=== PATIENT | male | born 1995 | race African-American/Black ===

== ENCOUNTER 2016-09-07 13:01 | Observation (INO) | payer MEDICAID ==
[~2016-09-07] VITALS: Ht 180.3 cm; Wt 98.3 kg
[2016-09-07] MEDS ORDERED: RISP2TAB3 PO (13:41)
[2016-09-07] MEDS ORDERED: ZIPRASIDONE 20 MG INJ IM ONE ×2 (14:00→18:13)
[2016-09-07] MEDS ORDERED: KETOROLAC 60 MG/2 ML IM ONE (14:00)
[2016-09-07 14:08] LABS: ASPARTATE AMINO TRANSFERASE 26 U/L (15-37); BLOOD UREA NITROGEN 13 mg/dL (7-18)
[2016-09-07 14:17] LABS: ACETAMINOPHEN < 2 mcg/mL (10-30)
[2016-09-07 15:22] LABS: DAU SCREEN DISCLAIMER
[2016-09-07] MEDS ORDERED: KETOROLAC 30 MG/1 ML ONE (18:13)
[2016-09-07] MEDS ORDERED: POLYETHYLENE GLYCOL 17 GM PACKET PO PRN (18:30)
[2016-09-07] MEDS ORDERED: ONDANSETRON ODT 4 MG PO PRN (18:30)
[2016-09-07] MEDS ORDERED: BISACODYL 10 MG SUPP PR PRN (18:30)
[2016-09-07] MEDS ORDERED: ACETAMINOPHEN 325 MG TABLET PO PRN (18:30)
[2016-09-07 19:18] VITALS: BP 162/107
[2016-09-07] MEDS: RISPERIDONE 2 MG TABLET PO SCH (20:44)
[2016-09-08 07:55] VITALS: BP 158/81
[2016-09-08] MEDS ORDERED: SENNA/DOCUSATE TABLET PO SCH (09:00)
[2016-09-08] MEDS: NICOTINE GUM 2 MG BC PRN ×3 (16:07→21:33)
[2016-09-08 19:16] VITALS: BP 164/96
[2016-09-08] MEDS: RISPERIDONE 2 MG TABLET PO SCH (20:29)
[2016-09-08] MEDS: LORazepam 1MG TABLET PO PRN (20:39)
[2016-09-08 21:41] VITALS: BP 157/92
[2016-09-09 07:54] VITALS: BP 168/100
[2016-09-09] MEDS: NICOTINE GUM 2 MG BC PRN ×5 (08:05→19:33)
[2016-09-09] MEDS ORDERED: SENNA/DOCUSATE TABLET PO SCH (09:00)
[2016-09-09 20:05] VITALS: BP 158/102
[2016-09-09] MEDS: RISPERIDONE 2 MG TABLET PO SCH (20:34)
[2016-09-09] MEDS: LORazepam 1MG TABLET PO PRN (20:34)
[2016-09-10 00:15] VITALS: BP 157/87
== END 2016-09-10 00:45 ==
LOC: ED 14:04 → EDIP 17:33 → 3E 19:14
PROVIDERS: ADMIT Hospitalist
DX: F20.0 Paranoid schizophrenia (principal); R45.851 Suicidal ideations; R00.0 Tachycardia, unspecified; D64.9 Anemia, unspecified; I10 Essential (primary) hypertension
CPT/HCPCS: 36415; 80053; 80307; 80329; 81003; 82728; 83540; 83550; 85025; 93005; G0378; G0480

== ENCOUNTER 2016-09-14 16:46 | Emergency (ER) | payer MEDICAID ==
[~2016-09-14] VITALS: Ht 180.3 cm; Wt 99.0 kg
[~2016-09-14 16:46] MED LIST: RISP2TAB3 PO
[2016-09-14 16:51] VITALS: BP 161/122
[2016-09-15] MEDS ORDERED: ARIP15TA2 PO (07:17)
== END 2016-09-14 17:48 | disposition left against medical advice (07) ==
LOC: ED 17:42
DX: I10 Essential (primary) hypertension (principal)

== ENCOUNTER 2016-09-15 06:56 | Emergency (ER) | payer MEDICAID ==
[~2016-09-15] VITALS: Ht 180.3 cm; Wt 99.4 kg
[2016-09-15] MEDS ORDERED: ARIP15TA2 PO (07:17)
[2016-09-15] MEDS ORDERED: MAGNESIUM CITRATE 300ML ORAL SOL PO ONE (07:30)
[2016-09-15] MEDS ORDERED: MAGNESIUM CITRATE 300ML ORAL SOL ONE (07:32)
[2016-09-15 08:25] VITALS: BP 172/102
== END 2016-09-15 08:29 | disposition home or self-care (01) ==
LOC: ED 07:27
DX: I10 Essential (primary) hypertension (principal); F20.0 Paranoid schizophrenia; F29 Unspecified psychosis not due to a substance or known physiological condition; Z91.14 Patient's other noncompliance with medication regimen
CPT/HCPCS: 99283

== ENCOUNTER 2016-09-15 09:25 | Emergency (ER) | payer MEDICAID ==
[~2016-09-15] VITALS: Ht 180.3 cm; Wt 99.3 kg
[~2016-09-15 09:25] MED LIST changes: +ARIP15TA2 PO
[2016-09-15 10:44] LABS: BLOOD UREA NITROGEN 13 mg/dL (7-18)
[2016-09-15 10:46] LABS: ACETAMINOPHEN < 2 mcg/mL (10-30)
[2016-09-15 10:48] LABS: DAU SCREEN DISCLAIMER
[2016-09-15 11:04] VITALS: BP 153/95
== END 2016-09-15 13:09 | disposition home or self-care (01) ==
LOC: ED 10:34
DX: F25.9 Schizoaffective disorder, unspecified (principal); F22 Delusional disorders; I10 Essential (primary) hypertension; F20.0 Paranoid schizophrenia; F17.210 Nicotine dependence, cigarettes, uncomplicated
CPT/HCPCS: 36415; 80048; 80307; 80329; 82040; 85025; 93005; G0480

== ENCOUNTER 2016-09-25 14:08 | Observation (INO) | payer MEDICAID ==
[~2016-09-25] VITALS: Ht 180.3 cm; Wt 101.0 kg
[2016-09-25 15:06] LABS: BLOOD UREA NITROGEN 14 mg/dL (7-18)
[2016-09-25 15:10] LABS: ACETAMINOPHEN < 2 mcg/mL (10-30)
[2016-09-25 15:26] LABS: DAU SCREEN DISCLAIMER
[2016-09-25] MEDS ORDERED: HALOPERIDOL 5 MG TABLET PO PRN (19:00)
[2016-09-25] MEDS ORDERED: ACETAMINOPHEN 325 MG TABLET PO PRN (19:00)
[2016-09-25] MEDS ORDERED: ZIPRASIDONE 20 MG INJ IM PRN (19:00)
[2016-09-25] MEDS ORDERED: LORazepam 1MG TABLET ONE (19:51)
[2016-09-25] MEDS: LORazepam 1MG TABLET PO PRN ×2 (19:54→21:58)
[2016-09-25 21:50] VITALS: BP 169/105
[2016-09-26 01:25] VITALS: BP 143/83
[2016-09-26 07:40] VITALS: BP 157/93
[2016-09-26] MEDS ORDERED: ARIPIPRAZOLE 15 MG TABLET PO SCH (09:00)
[2016-09-26] MEDS: LORazepam 1MG TABLET PO PRN ×2 (19:17→23:28)
[2016-09-26 19:34] VITALS: BP 182/115
[2016-09-26 20:40] VITALS: BP 172/114
[2016-09-26] MEDS: NICOTINE GUM 2 MG BC PRN (20:44)
[2016-09-26 23:25] VITALS: BP 186/103
[2016-09-27 00:38] VITALS: BP 156/89
[2016-09-27 07:41] VITALS: BP_SYST 165; BP_SYST 175; BP_DIAS 115; BP_DIAS 119
[2016-09-27] MEDS: LORazepam 1MG TABLET PO PRN (07:52)
[2016-09-27] MEDS: NICOTINE GUM 2 MG BC PRN ×2 (07:58→21:30)
[2016-09-27 09:15] VITALS: BP 142/81
[2016-09-27 19:45] VITALS: BP 155/89
[2016-09-28 08:00] VITALS: BP 200/128
[2016-09-28 08:02] VITALS: BP 180/123
[2016-09-28] MEDS: LORazepam 1MG TABLET PO PRN ×2 (14:14→16:49)
[2016-09-28 14:18] VITALS: BP_SYST 170; BP_SYST 171; BP_DIAS 118; BP_DIAS 126
[2016-09-28] MEDS: NICOTINE GUM 2 MG BC PRN ×3 (14:30→20:17)
[2016-09-28 16:52] VITALS: BP 188/130
[2016-09-28] MEDS ORDERED: AMLODIPINE 5 MG TABLET PO ONE (17:30)
[2016-09-28 19:04] VITALS: BP 166/127
[2016-09-28] MEDS: ALPRazolam 1MG TABLET PO PRN (20:16)
[2016-09-29] MEDS: NICOTINE GUM 2 MG BC PRN (07:19)
[2016-09-29] MEDS: ALPRazolam 1MG TABLET PO PRN (07:19)
[2016-09-29 08:00] VITALS: BP 164/130
[2016-09-29] MEDS ORDERED: AMLODIPINE 5 MG TABLET PO SCH ×2 (09:00)
== END 2016-09-29 08:48 ==
LOC: ED 18:21 → EDIP 18:43 → 3E 21:42
PROVIDERS: ADMIT Hospitalist; ATTEND Hospitalist
DX: F20.0 Paranoid schizophrenia (principal); R45.851 Suicidal ideations; R45.850 Homicidal ideations; F32.9 Major depressive disorder, single episode, unspecified; I10 Essential (primary) hypertension; F10.10 Alcohol abuse, uncomplicated
CPT/HCPCS: 36415; 80048; 80307; 80329; 82040; 85025; 99285; G0378; G0480

== ENCOUNTER 2016-10-13 19:58 | Observation (INO) | payer MEDICAID ==
[~2016-10-13] VITALS: Ht 180.3 cm; Wt 104.3 kg
[2016-10-13 20:36] LABS: DAU SCREEN DISCLAIMER
[2016-10-13 20:51] LABS: BLOOD UREA NITROGEN 15 mg/dL (7-18)
[2016-10-13 20:52] LABS: ACETAMINOPHEN < 2 mcg/mL (10-30)
[2016-10-13 21:44] LABS: DIFF TOTAL CELLS COUNTED 100 CELL DIFF
[2016-10-13 21:51] LABS: VERIFY COUNTS? YES
[2016-10-13 21:52] LABS: POLYCHROMASIA 1+
[2016-10-13 21:53] LABS: LARGE PLATELETS 1+
[2016-10-13] MEDS ORDERED: QUETIAPINE 100MG TABLET PO ONE (23:30)
[2016-10-14] MEDS ORDERED: BISACODYL 10 MG SUPP PR PRN (01:00)
[2016-10-14] MEDS ORDERED: POLYETHYLENE GLYCOL 17 GM PACKET PO PRN (01:00)
[2016-10-14] MEDS ORDERED: ONDANSETRON ODT 4 MG PO PRN (01:00)
[2016-10-14] MEDS ORDERED: ACETAMINOPHEN 325 MG TABLET PO PRN (01:00)
[2016-10-14] MEDS ORDERED: POTASSIUM CHLORIDE 20 MEQ TAB.ER.PRT PO ONE (01:00)
[2016-10-14] MEDS ORDERED: ENALAPRILAT 1.25 MG/ML, 2ML IV ONE (01:00)
[2016-10-14 01:16] VITALS: BP 177/121
[2016-10-14 07:36] VITALS: BP 154/94
[2016-10-14] MEDS: ARIPIPRAZOLE 15 MG TABLET PO SCH (08:10)
[2016-10-14] MEDS: HYDROCHLOROTHIAZIDE 25 MG TABLET PO SCH (08:11)
[2016-10-14] MEDS: SENNA/DOCUSATE TABLET PO SCH (09:00)
[2016-10-14] MEDS: NICOTINE 7 MG/24 HR PATCH.TD24 TD SCH (09:00)
[2016-10-14] MEDS: QUETIAPINE 200 MG TABLET PO SCH ×2 (09:00→21:00)
[2016-10-14] MEDS: METOPROLOL TARTRATE 25 MG TABLET PO SCH ×2 (09:30→17:54)
[2016-10-14 19:26] VITALS: BP 139/78
[2016-10-15 08:22] VITALS: BP 155/94
[2016-10-15] MEDS: METOPROLOL TARTRATE 25 MG TABLET PO SCH ×2 (08:42→18:24)
[2016-10-15] MEDS: ARIPIPRAZOLE 15 MG TABLET PO SCH (08:43)
[2016-10-15] MEDS: HYDROCHLOROTHIAZIDE 25 MG TABLET PO SCH (08:43)
[2016-10-15] MEDS: SENNA/DOCUSATE TABLET PO SCH ×2 (08:43→09:00)
[2016-10-15] MEDS: QUETIAPINE 200 MG TABLET PO SCH ×2 (08:44→21:00)
[2016-10-15] MEDS: NICOTINE 7 MG/24 HR PATCH.TD24 TD SCH (09:00)
[2016-10-15] MEDS: NICOTINE GUM 2 MG BC PRN (09:39)
[2016-10-15 09:52] LABS: BLOOD UREA NITROGEN 16 mg/dL (7-18)
[2016-10-15 19:19] VITALS: BP 139/84
[2016-10-16] MEDS: METOPROLOL TARTRATE 25 MG TABLET PO SCH ×2 (07:05→17:14)
[2016-10-16 07:06] VITALS: BP 157/77
[2016-10-16] MEDS: NICOTINE 7 MG/24 HR PATCH.TD24 TD SCH (09:00)
[2016-10-16] MEDS: QUETIAPINE 200 MG TABLET PO SCH ×2 (09:04→20:09)
[2016-10-16] MEDS: ARIPIPRAZOLE 15 MG TABLET PO SCH (09:05)
[2016-10-16] MEDS: HYDROCHLOROTHIAZIDE 25 MG TABLET PO SCH (09:05)
[2016-10-16] MEDS: SENNA/DOCUSATE TABLET PO SCH (09:06)
[2016-10-16] MEDS: NICOTINE GUM 2 MG BC PRN (09:09)
[2016-10-16 19:20] VITALS: BP 152/83
[2016-10-17] MEDS: METOPROLOL TARTRATE 25 MG TABLET PO SCH ×2 (07:33→18:04)
[2016-10-17] MEDS: HYDROCHLOROTHIAZIDE 25 MG TABLET PO SCH (07:33)
[2016-10-17] MEDS: NICOTINE 7 MG/24 HR PATCH.TD24 TD SCH (07:44)
[2016-10-17] MEDS: SENNA/DOCUSATE TABLET PO SCH (07:44)
[2016-10-17] MEDS: ARIPIPRAZOLE 15 MG TABLET PO SCH (07:44)
[2016-10-17] MEDS: QUETIAPINE 200 MG TABLET PO SCH (07:44)
[2016-10-17 07:48] VITALS: BP 175/115
[2016-10-17] MEDS: NICOTINE GUM 2 MG BC PRN ×2 (07:50→18:10)
[2016-10-17 08:35] VITALS: BP 150/78
[2016-10-17 10:42] VITALS: BP 150/87
[2016-10-17 19:10] VITALS: BP 151/88
[2016-10-17] MEDS: QUETIAPINE 100MG TABLET PO SCH (20:07)
[2016-10-18] MEDS: METOPROLOL TARTRATE 25 MG TABLET PO SCH ×2 (06:31→18:19)
[2016-10-18 06:32] VITALS: BP 169/94
[2016-10-18] MEDS: ARIPIPRAZOLE 15 MG TABLET PO SCH (07:45)
[2016-10-18] MEDS: SENNA/DOCUSATE TABLET PO SCH (07:46)
[2016-10-18] MEDS: HYDROCHLOROTHIAZIDE 25 MG TABLET PO SCH (07:46)
[2016-10-18] MEDS: QUETIAPINE 100MG TABLET PO SCH ×2 (07:46→20:13)
[2016-10-18] MEDS: NICOTINE GUM 2 MG BC PRN ×2 (07:49→18:22)
[2016-10-18 08:00] VITALS: BP 139/91
[2016-10-18] MEDS: NICOTINE 7 MG/24 HR PATCH.TD24 TD SCH (08:54)
[2016-10-18 19:38] VITALS: BP 148/95
[2016-10-19] MEDS: METOPROLOL TARTRATE 25 MG TABLET PO SCH ×2 (06:35→17:29)
[2016-10-19 07:24] VITALS: BP 154/101
[2016-10-19] MEDS: SENNA/DOCUSATE TABLET PO SCH (08:01)
[2016-10-19] MEDS: ARIPIPRAZOLE 15 MG TABLET PO SCH (08:01)
[2016-10-19] MEDS: HYDROCHLOROTHIAZIDE 25 MG TABLET PO SCH (08:01)
[2016-10-19] MEDS: NICOTINE 7 MG/24 HR PATCH.TD24 TD SCH (08:02)
[2016-10-19] MEDS: QUETIAPINE 100MG TABLET PO SCH ×2 (08:02→20:51)
[2016-10-19] MEDS: NICOTINE GUM 2 MG BC PRN ×2 (08:03→17:33)
[2016-10-19 11:00] VITALS: BP 141/89
[2016-10-19 17:27] VITALS: BP 150/100
[2016-10-19 20:24] VITALS: BP 145/102
[2016-10-20 06:28] VITALS: BP 134/83
[2016-10-20] MEDS: METOPROLOL TARTRATE 25 MG TABLET PO SCH (06:38)
[2016-10-20 07:42] VITALS: BP 118/72
[2016-10-20] MEDS: HYDROCHLOROTHIAZIDE 25 MG TABLET PO SCH (08:18)
[2016-10-20] MEDS: NICOTINE GUM 2 MG BC PRN (08:19)
[2016-10-20] MEDS: SENNA/DOCUSATE TABLET PO SCH (08:19)
[2016-10-20] MEDS: QUETIAPINE 100MG TABLET PO SCH (08:19)
[2016-10-20] MEDS: NICOTINE 7 MG/24 HR PATCH.TD24 TD SCH (08:22)
[2016-10-20] MEDS ORDERED: AMLO2.5T PO (14:34)
[2016-10-20] MEDS ORDERED: QUET400T4 PO (14:34)
[2016-10-20] MEDS ORDERED: METO25TA35 PO (14:34)
[2016-10-20] MEDS ORDERED: METOPROLOL TARTRATE 25 MG TABLET PO SCH (18:00)
[2016-10-21] MEDS ORDERED: SENNA/DOCUSATE TABLET PO SCH (09:00)
== END 2016-10-20 16:35 | disposition home or self-care (01) ==
LOC: ED 21:20 → EDIP 23:18 → 3E 10-14 01:21
PROVIDERS: ADMIT Internal Medicine; ATTEND Internal Medicine
DX: R45.851 Suicidal ideations (principal); I10 Essential (primary) hypertension; F25.9 Schizoaffective disorder, unspecified; F20.0 Paranoid schizophrenia; F10.129 Alcohol abuse with intoxication, unspecified; E87.6 Hypokalemia; F15.20 Other stimulant dependence, uncomplicated; F17.200 Nicotine dependence, unspecified, uncomplicated
CPT/HCPCS: 36415; 80048; 80307; 80329; 82040; 85025; 99285; G0378; G0480

== ENCOUNTER 2016-10-21 18:35 | Emergency (ER) | payer MEDICAID ==
[~2016-10-21] VITALS: Ht 180.3 cm; Wt 108.1 kg
[~2016-10-21 18:35] MED LIST changes: +AMLO2.5T PO; +METO25TA35 PO; +QUET400T4 PO
[2016-10-21] MEDS ORDERED: LORazepam 1MG TABLET PO ONE (19:30)
[2016-10-21 19:47] LABS: BLOOD UREA NITROGEN 14 mg/dL (7-18)
[2016-10-21 19:50] LABS: ASPARTATE AMINO TRANSFERASE 37 U/L (15-37)
[2016-10-21 19:55] LABS: ACETAMINOPHEN < 2 mcg/mL (10-30)
[2016-10-21 20:55] LABS: DAU SCREEN DISCLAIMER
[2016-10-22 02:24] VITALS: BP 165/101
== END 2016-10-22 02:26 | disposition home or self-care (01) ==
LOC: ED 23:59
DX: F32.9 Major depressive disorder, single episode, unspecified (principal); F10.10 Alcohol abuse, uncomplicated; F15.10 Other stimulant abuse, uncomplicated; I10 Essential (primary) hypertension; F17.200 Nicotine dependence, unspecified, uncomplicated
CPT/HCPCS: 36415; 80053; 80307; 80329; 81003; 85025; 99284; G0480

== ENCOUNTER 2016-11-16 14:30 | Emergency (ER) | payer MEDICAID ==
[~2016-11-16] VITALS: Ht 180.3 cm; Wt 107.3 kg
[2016-11-16 14:42] VITALS: BP 127/80
[2016-11-16] MEDS ORDERED: LISI2.5T PO (18:25)
== END 2016-11-16 15:41 | disposition home or self-care (01) ==
LOC: ED 15:25
DX: F20.0 Paranoid schizophrenia (principal); I10 Essential (primary) hypertension
CPT/HCPCS: 99284

== ENCOUNTER 2016-11-16 16:42 | Emergency (ER) | payer MEDICAID ==
[~2016-11-16] VITALS: Ht 180.3 cm; Wt 106.1 kg
[2016-11-16 17:08] VITALS: BP 130/75
[2016-11-16] MEDS ORDERED: LISI2.5T PO (18:25)
== END 2016-11-16 18:27 | disposition home or self-care (01) ==
LOC: ED 18:21
DX: Z76.5 Malingerer [conscious simulation] (principal); F43.0 Acute stress reaction; Z72.89 Other problems related to lifestyle; I10 Essential (primary) hypertension; F25.9 Schizoaffective disorder, unspecified
CPT/HCPCS: 99284

== ENCOUNTER 2016-11-17 11:54 | Emergency (ER) | payer MEDICAID ==
[~2016-11-17 11:54] MED LIST changes: +LISI2.5T PO
== END 2016-11-17 13:01 | disposition left against medical advice (07) ==
LOC: ED 12:57
DX: Z53.21 Procedure and treatment not carried out due to patient leaving prior to being seen by health care provider (principal)

== ENCOUNTER 2016-11-17 16:08 | Inpatient (IN) | payer MEDICAID ==
[~2016-11-17] VITALS: Ht 180.3 cm; Wt 107.8 kg
[2016-11-17] MEDS ORDERED: PLEASE ENTER HEIGHT AND WEIGHT MC SCH (17:00)
[2016-11-17] MEDS ORDERED: SODIUM CHLORIDE FLUSH 10ML SYR IVF ONE (17:00)
[2016-11-17 17:02] LABS: ASPARTATE AMINO TRANSFERASE 34 U/L (15-37); BLOOD UREA NITROGEN 17 mg/dL (7-18)
[2016-11-17 17:03] LABS: ACETAMINOPHEN < 2 mcg/mL (10-30)
[2016-11-17] MEDS ORDERED: LORazepam 1MG TABLET PO ONE (17:30)
[2016-11-17] MEDS: SODIUM CHLORIDE 0.9% 1,000ML IVBOLUS ONE ×2 (18:59→20:10)
[2016-11-17] MEDS ORDERED: POLYETHYLENE GLYCOL 17 GM PACKET PO PRN (20:00)
[2016-11-17] MEDS ORDERED: ONDANSETRON 2MG/ML, 2ML IVPush PRN (20:00)
[2016-11-17] MEDS ORDERED: BISACODYL 10 MG SUPP PR PRN (20:00)
[2016-11-17] MEDS ORDERED: ACETAMINOPHEN 325 MG TABLET PO PRN (20:00)
[2016-11-17 20:33] LABS: DAU SCREEN DISCLAIMER
[2016-11-17] MEDS: SODIUM CHLORIDE FLUSH 10ML SYR IVF SCH (23:27)
[2016-11-17 23:30] VITALS: BP 143/86
[2016-11-17] MEDS: HEPARIN 5,000 UNITS/ML, 1ML SQ SCH (23:32)
[2016-11-18] MEDS: METOPROLOL TARTRATE 25 MG TABLET PO SCH ×3 (00:23→17:34)
[2016-11-18 04:00] VITALS: BP 110/67
[2016-11-18 05:39] LABS: BLOOD UREA NITROGEN 18 mg/dL (7-18)
[2016-11-18 05:42] LABS: ASPARTATE AMINO TRANSFERASE 37 U/L (15-37)
[2016-11-18 07:47] VITALS: BP 106/67
[2016-11-18] MEDS: HEPARIN 5,000 UNITS/ML, 1ML SQ SCH ×2 (09:31→16:00)
[2016-11-18] MEDS: SENNA/DOCUSATE TABLET PO SCH (09:32)
[2016-11-18] MEDS: LISINOPRIL 5 MG TABLET PO SCH (09:32)
[2016-11-18] MEDS: AMLODIPINE 2.5 MG TABLET PO SCH (09:32)
[2016-11-18] MEDS: SODIUM CHLORIDE FLUSH 10ML SYR IVF SCH ×2 (09:32→21:28)
[2016-11-18 09:38] VITALS: BP 121/71
[2016-11-18 13:00] VITALS: BP 147/77
[2016-11-18 18:55] VITALS: BP 136/81
[2016-11-19] MEDS: HEPARIN 5,000 UNITS/ML, 1ML SQ SCH ×3 (00:31→15:36)
[2016-11-19 01:50] VITALS: BP 112/61
[2016-11-19] MEDS: METOPROLOL TARTRATE 25 MG TABLET PO SCH ×2 (05:15→17:26)
[2016-11-19 06:41] VITALS: BP 133/84
[2016-11-19] MEDS: SENNA/DOCUSATE TABLET PO SCH (09:45)
[2016-11-19] MEDS: LISINOPRIL 5 MG TABLET PO SCH (09:45)
[2016-11-19] MEDS: SODIUM CHLORIDE FLUSH 10ML SYR IVF SCH (09:46)
[2016-11-19] MEDS: AMLODIPINE 2.5 MG TABLET PO SCH (09:46)
[2016-11-19 12:26] VITALS: BP_SYST 135; BP_SYST 156; BP_DIAS 78; BP_DIAS 92
[2016-11-19] MEDS: NICOTINE 14MG/24 HR PATCH.TD24 TD SCH (15:37)
[2016-11-19 18:25] VITALS: BP 151/89
[2016-11-20 00:37] VITALS: BP 136/77
[2016-11-20 06:21] VITALS: BP 143/88
[2016-11-20] MEDS: METOPROLOL TARTRATE 25 MG TABLET PO SCH ×2 (06:22→17:15)
[2016-11-20 06:45] VITALS: BP 134/89
[2016-11-20] MEDS: AMLODIPINE 2.5 MG TABLET PO SCH (07:47)
[2016-11-20] MEDS: SENNA/DOCUSATE TABLET PO SCH (07:47)
[2016-11-20] MEDS: LISINOPRIL 5 MG TABLET PO SCH (07:48)
[2016-11-20 11:07] VITALS: BP 138/70
[2016-11-20] MEDS: NICOTINE 14MG/24 HR PATCH.TD24 TD SCH (15:34)
[2016-11-20 19:46] VITALS: BP 152/103
[2016-11-21 05:56] VITALS: BP 147/93
[2016-11-21] MEDS: METOPROLOL TARTRATE 25 MG TABLET PO SCH ×2 (05:58→17:14)
[2016-11-21 07:11] VITALS: BP 141/89
[2016-11-21] MEDS: SENNA/DOCUSATE TABLET PO SCH (08:51)
[2016-11-21] MEDS: AMLODIPINE 2.5 MG TABLET PO SCH (08:51)
[2016-11-21] MEDS: LISINOPRIL 5 MG TABLET PO SCH (08:51)
[2016-11-21] MEDS: NICOTINE 14MG/24 HR PATCH.TD24 TD SCH (15:44)
[2016-11-21 20:15] VITALS: BP 142/84
[2016-11-22 05:48] VITALS: BP 156/93
[2016-11-22] MEDS: METOPROLOL TARTRATE 25 MG TABLET PO SCH ×2 (05:52→19:59)
[2016-11-22 07:28] VITALS: BP 145/101
[2016-11-22] MEDS: LISINOPRIL 5 MG TABLET PO SCH (10:04)
[2016-11-22] MEDS: SENNA/DOCUSATE TABLET PO SCH (10:04)
[2016-11-22] MEDS: AMLODIPINE 2.5 MG TABLET PO SCH (10:04)
[2016-11-22] MEDS ORDERED: NICOTINE GUM 2 MG BC PRN (16:00)
[2016-11-22] MEDS: NICOTINE GUM 2 MG BC PRN ×2 (16:57→21:35)
[2016-11-22 20:47] VITALS: BP 165/106
[2016-11-23 05:59] VITALS: BP 128/79
[2016-11-23 06:00] VITALS: BP 128/79
[2016-11-23] MEDS: METOPROLOL TARTRATE 25 MG TABLET PO SCH ×2 (06:01→18:00)
[2016-11-23 07:41] VITALS: BP 160/94
[2016-11-23] MEDS: AMLODIPINE 2.5 MG TABLET PO SCH (10:36)
[2016-11-23] MEDS: LISINOPRIL 5 MG TABLET PO SCH (10:36)
[2016-11-23] MEDS: SENNA/DOCUSATE TABLET PO SCH (10:38)
[2016-11-23] MEDS: NICOTINE GUM 2 MG BC PRN ×2 (11:39→20:02)
[2016-11-23 19:47] VITALS: BP 161/90
[2016-11-23 20:56] VITALS: BP 150/80
[2016-11-24 05:34] VITALS: BP 119/78
[2016-11-24] MEDS: METOPROLOL TARTRATE 25 MG TABLET PO SCH ×2 (05:36→18:00)
[2016-11-24 07:58] VITALS: BP 145/74
[2016-11-24] MEDS: AMLODIPINE 2.5 MG TABLET PO SCH (08:49)
[2016-11-24] MEDS: SENNA/DOCUSATE TABLET PO SCH (08:49)
[2016-11-24] MEDS: LISINOPRIL 5 MG TABLET PO SCH (08:50)
[2016-11-24] MEDS: NICOTINE GUM 2 MG BC PRN ×2 (08:50→21:41)
[2016-11-24 20:00] VITALS: BP 152/75
[2016-11-25 06:02] VITALS: BP 122/77
[2016-11-25] MEDS: METOPROLOL TARTRATE 25 MG TABLET PO SCH ×2 (06:06→17:52)
[2016-11-25 07:25] VITALS: BP 154/97
[2016-11-25] MEDS: LISINOPRIL 5 MG TABLET PO SCH (08:12)
[2016-11-25] MEDS: AMLODIPINE 2.5 MG TABLET PO SCH (08:13)
[2016-11-25] MEDS: SENNA/DOCUSATE TABLET PO SCH (08:13)
[2016-11-25] MEDS: NICOTINE GUM 2 MG BC PRN (08:14)
[2016-11-25] MEDS: QUETIAPINE 100MG TABLET PO SCH ×3 (09:00→20:31)
[2016-11-25 20:07] VITALS: BP 111/65
[2016-11-26 06:16] VITALS: BP 134/75
[2016-11-26] MEDS: METOPROLOL TARTRATE 25 MG TABLET PO SCH ×2 (06:16→17:17)
[2016-11-26 08:00] VITALS: BP 119/74
[2016-11-26] MEDS: AMLODIPINE 2.5 MG TABLET PO SCH (08:52)
[2016-11-26] MEDS: SENNA/DOCUSATE TABLET PO SCH (08:52)
[2016-11-26] MEDS: LISINOPRIL 5 MG TABLET PO SCH (08:53)
[2016-11-26] MEDS: NICOTINE GUM 2 MG BC PRN (08:55)
[2016-11-26] MEDS ORDERED: QUETIAPINE 25MG TABLET ONE (10:28)
[2016-11-26] MEDS: QUETIAPINE 100MG TABLET PO SCH ×3 (10:33→20:48)
[2016-11-26 19:39] VITALS: BP 125/68
[2016-11-27 06:09] VITALS: BP 119/75
[2016-11-27] MEDS: METOPROLOL TARTRATE 25 MG TABLET PO SCH ×2 (06:09→18:10)
[2016-11-27 07:27] VITALS: BP 131/78
[2016-11-27] MEDS: AMLODIPINE 2.5 MG TABLET PO SCH (10:27)
[2016-11-27] MEDS: LISINOPRIL 5 MG TABLET PO SCH (10:28)
[2016-11-27] MEDS: SENNA/DOCUSATE TABLET PO SCH (10:28)
[2016-11-27] MEDS: NICOTINE GUM 2 MG BC PRN (16:20)
[2016-11-27 19:49] VITALS: BP 104/59
[2016-11-27] MEDS: QUETIAPINE 200 MG TABLET PO SCH ×2 (20:35→21:00)
[2016-11-27] MEDS ORDERED: QUETIAPINE 200 MG TABLET PO SCH (21:00)
[2016-11-28 06:35] VITALS: BP 104/67
[2016-11-28] MEDS: METOPROLOL TARTRATE 25 MG TABLET PO SCH ×2 (06:37→17:44)
[2016-11-28 07:36] VITALS: BP 117/76
[2016-11-28] MEDS ORDERED: SENNA/DOCUSATE TABLET PO SCH (09:00)
[2016-11-28] MEDS: AMLODIPINE 2.5 MG TABLET PO SCH (09:29)
[2016-11-28] MEDS: LISINOPRIL 5 MG TABLET PO SCH (09:29)
[2016-11-28] MEDS: QUETIAPINE 200 MG TABLET PO SCH ×3 (09:29→21:21)
[2016-11-28] MEDS: NICOTINE GUM 2 MG BC PRN (09:31)
[2016-11-28] MEDS ORDERED: POLYETHYLENE GLYCOL 17 GM PACKET PO PRN (16:00)
[2016-11-28] MEDS ORDERED: ACETAMINOPHEN 325 MG TABLET PO PRN (16:00)
[2016-11-28] MEDS ORDERED: BISACODYL 10 MG SUPP PR PRN (16:00)
[2016-11-28] MEDS ORDERED: ONDANSETRON 2MG/ML, 2ML IVPush PRN (16:00)
[2016-11-28 19:45] VITALS: BP 114/74
[2016-11-29 06:24] VITALS: BP 106/66
[2016-11-29] MEDS: METOPROLOL TARTRATE 25 MG TABLET PO SCH ×2 (06:30→18:00)
[2016-11-29 08:45] VITALS: BP 145/90
[2016-11-29] MEDS: LISINOPRIL 5 MG TABLET PO SCH (09:00)
[2016-11-29] MEDS: SENNA/DOCUSATE TABLET PO SCH (09:00)
[2016-11-29] MEDS: QUETIAPINE 200 MG TABLET PO SCH ×2 (09:00→16:17)
[2016-11-29] MEDS: AMLODIPINE 2.5 MG TABLET PO SCH (09:00)
[2016-11-29 19:46] VITALS: BP 138/77
[2016-11-29] MEDS: QUETIAPINE 100MG TABLET PO SCH (22:15)
[2016-11-30] MEDS: METOPROLOL TARTRATE 25 MG TABLET PO SCH ×2 (06:00→17:59)
[2016-11-30 06:08] VITALS: BP 93/53
[2016-11-30] MEDS ORDERED: DIVALPROEX 500 MG TAB.ER.24H PO ONE (08:29)
[2016-11-30 08:52] VITALS: BP 129/74
[2016-11-30] MEDS ORDERED: DIVALPROEX 500 MG TAB.ER.24H PO SCH (09:00)
[2016-11-30] MEDS: QUETIAPINE 200 MG TABLET PO SCH ×2 (10:03→12:59)
[2016-11-30] MEDS: AMLODIPINE 2.5 MG TABLET PO SCH (10:04)
[2016-11-30] MEDS: SENNA/DOCUSATE TABLET PO SCH (10:05)
[2016-11-30] MEDS: LISINOPRIL 5 MG TABLET PO SCH (10:05)
[2016-11-30 19:47] VITALS: BP 156/82
[2016-11-30] MEDS: DIVALPROEX 500 MG TAB.ER.24H PO SCH (20:49)
[2016-11-30] MEDS: QUETIAPINE 100MG TABLET PO SCH (20:50)
[2016-12-01] MEDS: METOPROLOL TARTRATE 25 MG TABLET PO SCH ×2 (06:00→18:00)
[2016-12-01 06:16] VITALS: BP 115/73
[2016-12-01 06:20] VITALS: BP 115/73
[2016-12-01] MEDS: LISINOPRIL 5 MG TABLET PO SCH (08:13)
[2016-12-01] MEDS: SENNA/DOCUSATE TABLET PO SCH (08:14)
[2016-12-01] MEDS: AMLODIPINE 2.5 MG TABLET PO SCH (08:14)
[2016-12-01] MEDS: QUETIAPINE 200 MG TABLET PO SCH ×2 (08:14→12:00)
[2016-12-01] MEDS: NICOTINE GUM 2 MG BC PRN (08:18)
[2016-12-01 18:36] VITALS: BP 102/60
[2016-12-01 19:43] VITALS: BP 104/64
[2016-12-01] MEDS: DIVALPROEX 500 MG TAB.ER.24H PO SCH (21:32)
[2016-12-01] MEDS: QUETIAPINE 100MG TABLET PO SCH (21:32)
[2016-12-02] MEDS: METOPROLOL TARTRATE 25 MG TABLET PO SCH (06:00)
[2016-12-02 07:12] VITALS: BP 122/80
[2016-12-02] MEDS: QUETIAPINE 200 MG TABLET PO SCH (08:18)
[2016-12-02] MEDS: AMLODIPINE 2.5 MG TABLET PO SCH (08:18)
[2016-12-02] MEDS: SENNA/DOCUSATE TABLET PO SCH (08:19)
[2016-12-02] MEDS: LISINOPRIL 5 MG TABLET PO SCH (08:19)
[2016-12-02] MEDS: NICOTINE GUM 2 MG BC PRN (08:22)
[2016-12-02] MEDS ORDERED: BISA10SU65 PR (09:50)
[2016-12-02] MEDS ORDERED: POLY17PO5 PO (09:50)
[2016-12-02] MEDS ORDERED: QUET200T PO (09:50)
[2016-12-02] MEDS ORDERED: NICO2GUM3 BC (09:50)
[2016-12-02] MEDS ORDERED: DIVA500T4 PO (09:50)
[2016-12-02] MEDS ORDERED: QUET100T PO (09:50)
== END 2016-12-02 09:48 | DRG 917 ==
LOC: ED 16:39 → EDIP 19:48 → 4WST 23:20 → 4EST 11-19 07:42 → 3E 11-20 10:16
PROVIDERS: ADMIT Internal Medicine
DX: T43.592A Poisoning by other antipsychotics and neuroleptics, intentional self-harm, initial encounter (principal); N17.0 Acute kidney failure with tubular necrosis; F15.20 Other stimulant dependence, uncomplicated; I10 Essential (primary) hypertension; F20.9 Schizophrenia, unspecified; F17.210 Nicotine dependence, cigarettes, uncomplicated; F32.9 Major depressive disorder, single episode, unspecified; Z91.5 Personal history of self-harm; Y92.89 Other specified places as the place of occurrence of the external cause; Z71.6 Tobacco abuse counseling; Z79.899 Other long term (current) drug therapy
CPT/HCPCS: 36415; 80053; 80307; 80329; 83735; 85025; 93005; 96360; J1644; G0378; G0480; J7030

== ENCOUNTER 2018-05-31 08:26 | Observation (INO) | payer MEDICAID ==
[~2018-05-31] VITALS: Ht 182.9 cm; Wt 120.0 kg
[~2018-05-31 08:26] MED LIST changes: -AMLO2.5T PO; +AMLO2.5T5 PO; -ARIP15TA2 PO; +ARIP15TA3 PO; +BISA10SU65 PR; +DIVA500T4 PO; +NICO2GUM41 BC; +POLY17PO5 PO; +QUET100T PO; +QUET200T PO
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
--- NOTE | 2018-05-31 09:35 | NUR ---
PT PRESENTED TO ED WITH SUICIDAL AND HOMICIDAL IDEATIONS. PT STATED THAT HE HAS BEEN OFF OF HIS RISPERIDONE X 1 WEEK. PT STATED " I JUST FEEL ANXIOUS, LIKE I WANT TO CRAWL UNDER A BED." PT PACING IN ROOM. PT A&OX4. PT THEN STATED " I WANT TO GO JUMP OFF A PARKING GARAGE AND KILL MYSELF." WHEN ASKED IF PT WAS HOMICIDAL , HE STATED "YES". PT CONTINUES TO PACE. PT THEN STATED " I DONT KNOW I JUST LOSE IT SOMETIMES." ASSESSMENT COMPLETED BY 2ND RN. ROOM SECURED AND BELONGINGS LOCKED IN CABINET. PT GIVEN 7-UP AND MEAL TRAY ORDERED.
[2018-05-31 09:41] LABS: AMPHETAMINE SCREEN, URINE Negative (Negative); BARBITURATE SCREEN, URINE Negative (Negative); BENZODIAZEPINE SCREEN, URINE Negative (Negative); CANNABINOID SCREEN, URINE Negative (Negative); COCAINE SCREEN, URINE Negative (Negative); METHADONE SCREEN, URINE Negative (Negative); OPIATE SCREEN, URINE Negative (Negative)
[2018-05-31 09:57] LABS: BASOPHILS # (AUTO) 0.02 x10^3/uL (0-0.1); BASOPHILS % (AUTO) 0 % (0-1); EOSINOPHILS # (AUTO) 0.13 x10^3/uL (0-0.4); EOSINOPHILS % (AUTO) 2 % (1-7); LYMPHOCYTES # (AUTO) 1.83 x10^3/uL (1-3.4); LYMPHOCYTES % (AUTO) 32 % (22-44); MD NO; MEAN CORPUSCULAR HEMOGLOBIN 28.9 pg (27.5-34.5); MEAN CORPUSCULAR HGB CONC 34.6 g/dL (33.2-36.2); MEAN CORPUSCULAR VOLUME 83.6 fL (81-97); MEAN PLATELET VOLUME 8.6 fL (7.4-10.4); MONOCYTES # (AUTO) 0.69 x10^3/uL (0.2-0.8); MONOCYTES % (AUTO) 12 % (2-9); NEUTROPHILS # (AUTO) 3.14 x10^3/uL (1.8-6.8); NEUTROPHILS % (AUTO) 54 % (42-75); PLATELET COUNT 335 x10^3/uL (130-400); RED BLOOD COUNT 5.08 x10^6/uL (4.38-5.82)
[2018-05-31 10:05] LABS: ALBUMIN 3.9 g/dL (3.4-5.0); ANION GAP 5 mmol/L (5-15); CALCIUM 9.2 mg/dL (8.5-10.1); CHLORIDE 105 mmol/L (98-107)
--- NOTE | 2018-05-31 10:08 | NUR ---
REPORT FROM HERNANDEZ FELICIANO.
--- NOTE | 2018-05-31 10:12 | NUR ---
REPORT GIVEN TO JONY FELICIANO
[2018-05-31 10:13] LABS: ALANINE AMINOTRANSFERASE 52 U/L (12-78); ALKALINE PHOSPHATASE 92 U/L (45-117); BILIRUBIN,TOTAL 0.5 mg/dL (0.2-1.0); CREATININE 1.41 mg/dL (0.7-1.3); SALICYLATE LEVEL < 1.7 mg/dL (2.8-20.0); TOTAL PROTEIN 8.8 g/dL (6.4-8.2)
[2018-05-31 10:14] LABS: ACETAMINOPHEN < 2 mcg/mL (10-30)
--- NOTE | 2018-05-31 10:56 | NUR ---
ROUNDED ON PT, PT SLEEPING-EVEN RISE AND FALL OF CHEST. SITTER AT DOORWAY.
--- NOTE | 2018-05-31 12:15 | NUR ---
PT SLEEPING, NAD. CONFERRED WITH ERP, HOLD ON WAKING PT TO GIVE GEODON. CONTINUE CLOSE OBS, SITTER AT DOORWAY. MEAL TRAY WITH SITTER FOR WHEN PT AWAKENS.
--- NOTE | 2018-05-31 13:16 | NUR ---
PT SLEEPING, NAD, SITTER AT DOORWAY.
[2018-05-31] MEDS ORDERED: ZIPRASIDONE 20MG CAPSULE ONE (13:20)
[2018-05-31] MEDS: ZIPRASIDONE 20MG CAPSULE PO SCH ×2 (13:25→21:00)
--- NOTE | 2018-05-31 13:33 | NUR ---
PT AWAKE, MEDICATED PER ERP ORDER, MEAL TRAY PROVIDED. PT COOPERATIVE WITH CARE AND PLEASANT. BREATHALYZER REPEATED 0.134
--- NOTE | 2018-05-31 15:28 | NUR ---
REPEAT BREATHALYZER 0.097. PT OBSERVED PACING ROOM, ASKING FOR FOOD. PT OFFERED 2ND MEAL TRAY AND CRACKERS. PT LYING BACK ON WOODY SANDERSON. SITTER REMAINS AT DOORWAY FOR CLOSE OBS.
--- NOTE | 2018-05-31 16:40 | NUR ---
REPEAT BREATHALYZER 0.076
[2018-05-31] MEDS ORDERED: ACETAMINOPHEN 325 MG TABLET PO PRN (17:00)
[2018-05-31] MEDS ORDERED: ZIPRASIDONE 20 MG INJ IM PRN (17:00)
[2018-05-31] MEDS ORDERED: DIPHENHYDRAMINE 50 MG CAPSULE PO PRN (17:00)
[2018-05-31] MEDS ORDERED: DOCUSATE 100 MG CAPSULE PO PRN (17:00)
[2018-05-31] MEDS ORDERED: POLYETHYLENE GLYCOL 17 GM PACKET PO PRN (17:00)
--- NOTE | 2018-05-31 17:15 | NUR ---
REPORT TO JOSH MAKI READY FOR TRANSPORT TO .
[2018-05-31 17:35] VITALS: BP 150/108
[2018-05-31] MEDS ORDERED: METOPROLOL TARTRATE 25 MG TABLET ONE (17:36)
[2018-05-31] MEDS ORDERED: QUETIAPINE 200 MG TABLET ONE (17:36)
[2018-05-31] MEDS: QUETIAPINE 200 MG TABLET PO SCH (17:37)
[2018-05-31] MEDS: METOPROLOL TARTRATE 25 MG TABLET PO SCH (17:38)
[2018-05-31 17:51] VITALS: BP 150/108
[2018-05-31 19:22] VITALS: BP 138/75
[2018-05-31] MEDS ORDERED: QUETIAPINE 100MG TABLET PO SCH (21:00)
[2018-05-31] MEDS: DIVALPROEX 500 MG TAB.ER.24H PO SCH (21:00)
[2018-06-01 07:50] VITALS: BP 163/91
[2018-06-01] MEDS: QUETIAPINE 200 MG TABLET PO SCH ×3 (08:00→12:33)
[2018-06-01] MEDS: ZIPRASIDONE 20MG CAPSULE PO SCH ×2 (08:03→20:24)
[2018-06-01] MEDS: METOPROLOL TARTRATE 25 MG TABLET PO SCH ×2 (08:04→18:11)
[2018-06-01] MEDS ORDERED: QUETIAPINE 100MG TABLET PO ONE (09:00)
[2018-06-01 11:21] VITALS: BP 128/81
[2018-06-01 18:17] VITALS: BP 138/83
[2018-06-01 20:00] VITALS: BP 118/70
[2018-06-01] MEDS: DIVALPROEX 500 MG TAB.ER.24H PO SCH (20:24)
[2018-06-01] MEDS: QUETIAPINE 100MG TABLET PO SCH (20:25)
[2018-06-02] MEDS: METOPROLOL TARTRATE 25 MG TABLET PO SCH ×2 (07:15→17:53)
[2018-06-02 07:18] VITALS: BP 172/107
[2018-06-02] MEDS: QUETIAPINE 200 MG TABLET PO SCH ×2 (08:08→12:43)
[2018-06-02] MEDS: ZIPRASIDONE 20MG CAPSULE PO SCH (08:09)
[2018-06-02 09:00] VITALS: BP 142/91
[2018-06-02 19:17] VITALS: BP 149/91
[2018-06-02] MEDS: DIVALPROEX 500 MG TAB.ER.24H PO SCH (21:19)
[2018-06-02] MEDS: QUETIAPINE 100MG TABLET PO SCH (21:20)
[2018-06-02] MEDS: ZIPRASIDONE 20MG CAPSULE PO PRN (22:23)
[2018-06-03 07:22] VITALS: BP 160/101
[2018-06-03] MEDS: METOPROLOL TARTRATE 25 MG TABLET PO SCH ×2 (07:24→18:00)
[2018-06-03] MEDS: QUETIAPINE 200 MG TABLET PO SCH ×2 (08:27→12:11)
[2018-06-03] MEDS: NICOTINE GUM 2 MG BC PRN (09:56)
[2018-06-03 17:57] VITALS: BP 159/92
[2018-06-03 19:34] VITALS: BP 132/82
[2018-06-03] MEDS: DIVALPROEX 500 MG TAB.ER.24H PO SCH (20:14)
[2018-06-03] MEDS: QUETIAPINE 100MG TABLET PO SCH (20:15)
[2018-06-04] MEDS: METOPROLOL TARTRATE 25 MG TABLET PO SCH ×2 (06:00→18:00)
[2018-06-04 07:15] VITALS: BP 158/107
[2018-06-04] MEDS: QUETIAPINE 200 MG TABLET PO SCH ×2 (07:19→11:49)
[2018-06-04] MEDS: ZIPRASIDONE 20MG CAPSULE PO PRN (07:20)
[2018-06-04] MEDS: NICOTINE GUM 2 MG BC PRN ×2 (08:59→18:12)
[2018-06-04 19:44] VITALS: BP 182/132
[2018-06-04] MEDS: QUETIAPINE 100MG TABLET PO SCH (19:47)
[2018-06-04] MEDS: DIVALPROEX 500 MG TAB.ER.24H PO SCH (19:48)
[2018-06-04 19:51] VITALS: BP 176/122
[2018-06-04 20:38] VITALS: BP 172/113
[2018-06-04 22:25] VITALS: BP 157/97
[2018-06-04 23:07] VITALS: BP 134/80
[2018-06-05] MEDS: NICOTINE GUM 2 MG BC PRN ×3 (06:19→17:01)
[2018-06-05] MEDS: METOPROLOL TARTRATE 25 MG TABLET PO SCH ×2 (06:20→17:57)
[2018-06-05 07:52] VITALS: BP 152/82
[2018-06-05] MEDS: QUETIAPINE 200 MG TABLET PO SCH ×2 (08:11→11:54)
[2018-06-05] MEDS ORDERED: AMLODIPINE 5 MG TABLET ONE (10:23)
[2018-06-05] MEDS: AMLODIPINE 5 MG TABLET PO SCH ×2 (10:24→21:47)
[2018-06-05] MEDS: QUETIAPINE 100MG TABLET PO SCH (21:46)
[2018-06-05] MEDS: DIVALPROEX 500 MG TAB.ER.24H PO SCH (21:47)
[2018-06-05 21:50] VITALS: BP 157/108
[2018-06-05 22:43] VITALS: BP 139/95
[2018-06-06 07:49] VITALS: BP 148/106
[2018-06-06] MEDS: METOPROLOL TARTRATE 25 MG TABLET PO SCH ×3 (08:00→20:09)
[2018-06-06] MEDS: AMLODIPINE 5 MG TABLET PO SCH ×2 (08:37→20:08)
[2018-06-06] MEDS: QUETIAPINE 200 MG TABLET PO SCH ×2 (08:38→12:32)
[2018-06-06] MEDS: NICOTINE GUM 2 MG BC PRN ×2 (08:40→13:07)
[2018-06-06 10:00] VITALS: BP 138/87
[2018-06-06 19:31] VITALS: BP 111/67
[2018-06-06] MEDS: QUETIAPINE 100MG TABLET PO SCH (20:08)
[2018-06-06] MEDS: DIVALPROEX 500 MG TAB.ER.24H PO SCH (20:08)
[2018-06-07] MEDS: NICOTINE GUM 2 MG BC PRN ×4 (03:12→17:22)
[2018-06-07] MEDS: QUETIAPINE 200 MG TABLET PO SCH ×2 (07:44→12:41)
[2018-06-07] MEDS: METOPROLOL TARTRATE 25 MG TABLET PO SCH ×3 (07:45→21:27)
[2018-06-07] MEDS: AMLODIPINE 5 MG TABLET PO SCH ×2 (07:46→21:26)
[2018-06-07 07:55] VITALS: BP 175/129
[2018-06-07 09:04] VITALS: BP 141/89
[2018-06-07 16:10] VITALS: BP 159/91
[2018-06-07 19:34] VITALS: BP 144/76
[2018-06-07] MEDS: DIVALPROEX 500 MG TAB.ER.24H PO SCH (21:00)
[2018-06-07] MEDS: QUETIAPINE 100MG TABLET PO SCH (21:26)
[2018-06-08 07:51] VITALS: BP 137/90
[2018-06-08] MEDS: QUETIAPINE 200 MG TABLET PO SCH ×4 (08:00→20:06)
[2018-06-08] MEDS: AMLODIPINE 5 MG TABLET PO SCH ×2 (08:23→20:06)
[2018-06-08] MEDS: METOPROLOL TARTRATE 25 MG TABLET PO SCH ×3 (08:23→20:06)
[2018-06-08] MEDS: NICOTINE 14MG/24 HR PATCH.TD24 TD SCH (08:54)
[2018-06-08] MEDS: QUETIAPINE 100MG TABLET PO SCH (12:00)
[2018-06-08 17:05] VITALS: BP 121/76
[2018-06-08 19:45] VITALS: BP 154/93
[2018-06-08] MEDS: DIVALPROEX 500 MG TAB.ER.24H PO SCH (20:06)
[2018-06-09 07:32] VITALS: BP 156/112
[2018-06-09] MEDS: METOPROLOL TARTRATE 25 MG TABLET PO SCH ×3 (08:07→20:34)
[2018-06-09] MEDS: AMLODIPINE 5 MG TABLET PO SCH ×2 (08:07→20:35)
[2018-06-09] MEDS: QUETIAPINE 100MG TABLET PO SCH ×2 (08:07→12:03)
[2018-06-09] MEDS: NICOTINE 14MG/24 HR PATCH.TD24 TD SCH (08:46)
[2018-06-09] MEDS ORDERED: QUETIAPINE 100MG TABLET PO SCH (12:00)
[2018-06-09 19:28] VITALS: BP 153/89
[2018-06-09] MEDS: QUETIAPINE 200 MG TABLET PO SCH (20:34)
[2018-06-09] MEDS: DIVALPROEX 500 MG TAB.ER.24H PO SCH (20:34)
[2018-06-10 08:31] VITALS: BP 149/87
[2018-06-10] MEDS: AMLODIPINE 5 MG TABLET PO SCH ×2 (08:53→21:19)
[2018-06-10] MEDS: QUETIAPINE 100MG TABLET PO SCH ×2 (08:53→13:47)
[2018-06-10] MEDS: METOPROLOL TARTRATE 25 MG TABLET PO SCH ×3 (08:53→21:19)
[2018-06-10] MEDS: NICOTINE 14MG/24 HR PATCH.TD24 TD SCH (09:01)
[2018-06-10 19:42] VITALS: BP 153/83
[2018-06-10] MEDS: DIVALPROEX 500 MG TAB.ER.24H PO SCH (21:00)
[2018-06-10] MEDS: QUETIAPINE 200 MG TABLET PO SCH (21:19)
[2018-06-11 08:00] VITALS: BP 157/92
[2018-06-11] MEDS: AMLODIPINE 5 MG TABLET PO SCH ×2 (08:31→20:08)
[2018-06-11] MEDS: METOPROLOL TARTRATE 25 MG TABLET PO SCH ×3 (08:31→20:08)
[2018-06-11] MEDS: QUETIAPINE 100MG TABLET PO SCH ×2 (08:31→11:52)
[2018-06-11] MEDS: NICOTINE 14MG/24 HR PATCH.TD24 TD SCH (08:31)
[2018-06-11 19:13] VITALS: BP 145/76
[2018-06-11] MEDS: QUETIAPINE 200 MG TABLET PO SCH (20:08)
[2018-06-11] MEDS: DIVALPROEX 500 MG TAB.ER.24H PO SCH (20:08)
[2018-06-12 07:16] VITALS: BP 169/92
[2018-06-12] MEDS: NICOTINE 14MG/24 HR PATCH.TD24 TD SCH (08:46)
[2018-06-12] MEDS: METOPROLOL TARTRATE 25 MG TABLET PO SCH ×3 (08:47→20:14)
[2018-06-12] MEDS: QUETIAPINE 100MG TABLET PO SCH ×2 (08:47→12:07)
[2018-06-12] MEDS: AMLODIPINE 5 MG TABLET PO SCH ×2 (08:47→20:14)
[2018-06-12 12:30] LABS: ALBUMIN 3.9 g/dL (3.4-5.0); ANION GAP 3 mmol/L (5-15); CALCIUM 9.3 mg/dL (8.5-10.1); CHLORIDE 107 mmol/L (98-107); CREATININE 1.27 mg/dL (0.7-1.3)
[2018-06-12] MEDS: HYDROCHLOROTHIAZIDE 12.5 MG CAPSULE PO SCH (14:00)
[2018-06-12 19:52] VITALS: BP 143/91
[2018-06-12] MEDS: DIVALPROEX 500 MG TAB.ER.24H PO SCH (20:14)
[2018-06-12] MEDS: QUETIAPINE 200 MG TABLET PO SCH (20:15)
[2018-06-13] MEDS: QUETIAPINE 100MG TABLET PO SCH ×2 (07:55→12:27)
[2018-06-13] MEDS: AMLODIPINE 5 MG TABLET PO SCH ×2 (07:55→21:59)
[2018-06-13] MEDS: METOPROLOL TARTRATE 25 MG TABLET PO SCH ×3 (07:55→21:59)
[2018-06-13 07:56] VITALS: BP 135/85
[2018-06-13] MEDS: HYDROCHLOROTHIAZIDE 12.5 MG CAPSULE PO SCH (07:56)
[2018-06-13] MEDS: NICOTINE 14MG/24 HR PATCH.TD24 TD SCH (08:07)
[2018-06-13] MEDS: QUETIAPINE 200 MG TABLET PO SCH (21:59)
[2018-06-13] MEDS: DIVALPROEX 500 MG TAB.ER.24H PO SCH (21:59)
[2018-06-14] MEDS ORDERED: NICOTINE 14MG/24 HR PATCH.TD24 ONE (07:39)
[2018-06-14 08:00] VITALS: BP 133/87
[2018-06-14] MEDS: AMLODIPINE 5 MG TABLET PO SCH (08:20)
[2018-06-14] MEDS: QUETIAPINE 100MG TABLET PO SCH (08:20)
[2018-06-14] MEDS: HYDROCHLOROTHIAZIDE 12.5 MG CAPSULE PO SCH (08:20)
[2018-06-14] MEDS: METOPROLOL TARTRATE 25 MG TABLET PO SCH (08:20)
[2018-06-14] MEDS: NICOTINE 14MG/24 HR PATCH.TD24 TD SCH (08:34)
[2018-06-14] MEDS ORDERED: AMLO-150 PO (10:09)
[2018-06-14] MEDS ORDERED: QUET200T PO (10:09)
[2018-06-14] MEDS ORDERED: NICO-486 TD (10:09)
[2018-06-14] MEDS ORDERED: HYDR12.517 PO (10:09)
[2018-06-14] MEDS ORDERED: QUET100T PO (10:09)
[2018-06-14] MEDS ORDERED: METO25TA35 PO (10:09)
== END 2018-06-14 11:05 ==
LOC: ED 13:24 → EDIP 16:45 → 2N 17:24
PROVIDERS: ADMIT Family Medicine; ATTEND Family Medicine
DX: R45.851 Suicidal ideations (principal); R45.850 Homicidal ideations; F10.129 Alcohol abuse with intoxication, unspecified; F25.9 Schizoaffective disorder, unspecified; I10 Essential (primary) hypertension; Z59.9 Problem related to housing and economic circumstances, unspecified; Z91.14 Patient's other noncompliance with medication regimen; Z91.19 Patient's noncompliance with other medical treatment and regimen; Z91.5 Personal history of self-harm
CPT/HCPCS: 36415; 80048; 80053; 80307; 80329; 82040; 85025; 99284; G0378; Q0177; G0480